=== PATIENT | female | born 1980 | race Caucasian/White ===

== ENCOUNTER 2018-10-06 05:41 | Emergency (ER) | payer OTHER ==
[2018-10-06 05:57] VITALS: O2SAT 100
[2018-10-06] MEDS ORDERED: Sodium Chloride 0.9% 1000 ML 1,000 ML IV STA (05:59)
[2018-10-06] MEDS ORDERED: TORAdol 30 mg Injection IV ONE (05:59)
[2018-10-06] MEDS ORDERED: Pepcid 20 MG VIAL IV ONE ×2 (05:59→06:03)
[2018-10-06] MEDS ORDERED: Zofran 4 MG/2 ML VIAL IV ONE (05:59)
[2018-10-06] MEDS ORDERED: TORAdol 30 mg Injection ONE (06:03)
[2018-10-06] MEDS ORDERED: Zofran 4 MG/2 ML VIAL ONE (06:03)
[2018-10-06] MEDS ORDERED: Sodium Chloride 0.9% 1000 ML 1,000 ML ONE (06:04)
--- NOTE | 2018-10-06 06:04 | ERPHSYRPT ---
- History of Present Illness Historian: patient Exam Limitations: no limitations Patient Subjective Stated Complaint: Abdominal pain Triage Nursing Assessment: Patient ambulated back to ED and transferred self to bed. Patient A+ O X 3. Patient's skin pink, warm and dry. Patient complains of lower right sided abdominal constant sharp pain 8/10 that started Babak. Patient states the pain is unbearable now. Patient's abdomen round and soft with bowel sounds X 4. Patient states she has also been vomiting, nauseous and diarrhea since Friday. Timing/Duration: day(s) (4) Activities at Onset: none Quality: cramping, sharpness Abdominal Pain Onset Location: RLQ Pain Radiation: no radiation Severity of Pain-Max: severe Severity of Pain-Current: moderate Modifying Factors: Improves With: nothing Associated Symptoms: diarrhea, loss of appetite, nausea, vomiting Previous symptoms: no prior history Hx Tetanus, Diphtheria Vaccination/Date Given: Yes Hx Influenza Vaccination/Date Given: No Hx Pneumococcal Vaccination/Date Given: No Immunizations Up to Date: Yes <RAMSEY OLIVO - Last Filed: 10/06/18 06:59> <MONET WILKINS - Last Filed: 10/06/18 09:24> - History of Present Illness Time Seen by Provider: 10/06/18 05:52 Physician History: C/o RLQ abdominal pain, nausea, vomiting, dry heaving, diarrhea x 4 days. She denies vomiting blood or coffee ground material, no black or bloody diarrhea, no fever, chills, or urinary complaints. (RAMSEY OLIVO) Allergies/Adverse Reactions: penicillin G Allergy (Mild, Verified 10/06/18 05:47) Hives prednisone Allergy (Mild, Verified 10/06/18 05:47) Rash Sulfa (Sulfonamide Antibiotics) [Sulfa(Sulfonamide Antibiotics)] Allergy (Mild, Verified 10/06/18 05:47) Hives rash latex Adverse Reaction (Intermediate, Verified 10/06/18 05:47) Rash - Review of Systems Constitutional: No Symptoms Ears, Nose, & Throat: No Symptoms Respiratory: No Symptoms Cardiac: No Symptoms Abdominal/Gastrointestinal: Abdominal Pain, Nausea, Vomiting, Diarrhea, No Hematemesis, No Hematochezia, No Melena Genitourinary Symptoms: No Symptoms Musculoskeletal: No Symptoms Skin: No Symptoms Neurological: No Symptoms All Other Systems: Reviewed and Negative <RAMSEY OLIVO Filed: 10/06/18 06:59> - Past Medical History Pertinent Past Medical History: Yes Neurological History: Migraines ENT History: No Pertinent History Cardiac History: Other Respiratory History: COPD Endocrine Medical History: No Pertinent History Musculoskeletal History: No Pertinent History GI Medical History: No Pertinent History History: Other Psycho-Social History: Depression Female Reproductive Disorders: No Pertinent History Other Medical History: bronchiole MRSA 2005 - Past Surgical History Past Surgical History: Yes Neuro Surgical History: No Pertinent History Cardiac: No Pertinent History Respiratory: No Pertinent History Gastrointestinal: Cholecystectomy Genitourinary: No Pertinent History Musculoskeletal: Orthopedic Surgery Female Surgical History: Section, Tubal Ligation, Other Other Surgical History: hemorrhoidectomy, uterine ablation - Social History Smoking Status: Current every day smoker How long have you smoked: years Exposure to second hand smoke: Yes Drug Use: none Patient Lives Alone: No - Female History Hx Last Menstrual Period: 2013/ablation Hx Now: No <RAMSEY OLIVO Filed: 10/06/18 06:59> - Physical Exam General Appearance: no apparent distress Eye Exam: eyes nml inspection Ears, Nose, Throat Exam: normal ENT inspection, moist mucous membranes Neck Exam: normal inspection, non-tender Respiratory Exam: normal breath sounds, lungs clear, airway intact, No chest tenderness Cardiovascular Exam: regular rate/rhythm, normal heart sounds, normal peripheral pulses, No murmur Gastrointestinal/Abdomen Exam: soft, normal bowel sounds, tenderness (mod. severe RLQ.), No distention, No mass, No guarding, No rebound, No hernia, No organomegaly Back Exam: normal inspection, No CVA tenderness Extremity Exam: normal inspection, No calf tenderness Neurologic Exam: alert, oriented x 3, normal mood/affect Skin Exam: normal color, warm, dry, No rash, No petechiae Lymphatic Exam: No adenopathy SpO2 Interpretation: normal SpO2: 100 O2 Delivery: Room Air <RAMSEY OLIVO Filed: 10/06/18 06:59> - Nursing Vital Signs Nursing Vital Signs: Initial Vital Signs Temperature 97.9 F 10/06/18 05:48 Pulse Rate 76 10/06/18 05:48 Respiratory Rate 18 10/06/18 05:48 Blood Pressure 116/72 10/06/18 05:48 O2 Sat by Pulse Oximetry 100 10/06/18 05:48 Pain Scale Pain Intensity 0 Ordered Tests: Active Orders 24 hr Category Date Time Status IV Insertion STAT Care 10/06/18 05:59 Active Order K Level 2 hours post-inf 2 HRS POST K-INFUSED Care 10/06/18 06:46 Active Telemetry q4h Care 10/06/18 06:46 Active ABDOMEN AND PELVIS W CONTRAST [CT] Stat Exams 10/06/18 05:59 Completed CBC W DIFF Stat Lab 10/06/18 06:00 Completed CMP Stat Lab 10/06/18 06:00 Completed LIPASE Stat Lab 10/06/18 06:00 Completed Lactic Acid Stat Lab 10/06/18 05:59 Completed UA W/RFX UR CULTURE Stat Lab 10/06/18 06:00 Completed Urine Triage Profile Stat Lab 10/06/18 06:00 Completed Medication Summary Generic Name Dose Route Start Last Admin Trade Name Freq PRN Reason Stop Dose Admin Lactated Ringer's 500 mls @ 500 mls/hr 10/06/18 08:41 10/06/18 09:19 Lactated Ringers IV 10/06/18 09:40 Infused .Q1H ONE Infusion Discontinued Medications Generic Name Dose Route Start Last Admin Trade Name Freq PRN Reason Stop Dose Admin Famotidine 20 mg 10/06/18 05:59 10/06/18 06:08 Pepcid 20 Mg Vial IV 10/06/18 06:00 20 mg STAT ONE Administration Famotidine Confirm 10/06/18 06:03 Pepcid 20 Mg Vial Administered 10/06/18 06:04 Dose 20 mg IV .STK-MED ONE Sodium Chloride 1,000 mls @ 999 mls/hr 10/06/18 05:59 10/06/18 08:42 Sodium Chloride 0.9% 1000 Ml IV 10/06/18 06:59 Infused .Q1H1M STA Infusion Sodium Chloride Confirm 10/06/18 06:04 Sodium Chloride 0.9% 1000 Ml Administered 10/06/18 06:05 Dose 1,000 mls @ ud .ROUTE .STK-MED ONE Potassium Chloride 20 meq in 100 mls @ 50 mls/hr 10/06/18 06:45 10/06/18 06: 48 Potassium Chloride 20 Meq In Water 100ml IV 10/06/18 08:44 50 mls/hr STAT ONE Administration Potassium Chloride Confirm 10/06/18 06:48 Potassium Chloride 20 Meq In Water 100ml Administered 10/06/18 06:49 Dose 100 mls @ ud IV .STK-MED ONE Lactated Ringer's Confirm 10/06/18 08:43 Lactated Ringers Administered 10/06/18 08:44 Dose 1,000 mls @ ud IV .STK-MED ONE Ketorolac Tromethamine 30 mg 10/06/18 05:59 10/06/18 06:08 Toradol 30 Mg Injection IV 10/06/18 06:00 30 mg STAT ONE Administration Ketorolac Tromethamine Confirm 10/06/18 06:03 Toradol 30 Mg Injection Administered 10/06/18 06:04 Dose 30 mg .ROUTE .STK-MED ONE Metronidazole 500 mg 10/06/18 09:03 10/06/18 09:12 Flagyl 500 Mg PO 10/06/18 09:04 500 mg STAT ONE Administration Metronidazole Confirm 10/06/18 09:11 Flagyl 500 Mg Administered 10/06/18 09:12 Dose 500 mg .ROUTE .STK-MED ONE Ondansetron HCl 4 mg 10/06/18 05:59 10/06/18 06:09 Zofran 4 Mg/2 Ml Vial IV 10/06/18 06:00 4 mg STAT ONE Administration Ondansetron HCl Confirm 10/06/18 06:03 Zofran 4 Mg/2 Ml Vial Administered 10/06/18 06:04 Dose 4 mg .ROUTE .STK-MED ONE Lab/Rad Data: Laboratory Result Diagrams 10/06/18 06:00 10/06/18 06:00 Laboratory Results 10/06/18 10/06/18 10/06/18 Range/Units 06:00 06:00 06:00 WBC (4.0-10.5) K/mm3 RBC (4.1-5.4) M/mm3 Hgb (12.0-16.0) gm/dl Hct (35-47) % MCV (78-100) fl MCH (26-32) pg MCHC (32-36) g/dl RDW (11.5-14.0) % Plt Count (150-450) K/mm3 MPV (6-9.5) fl Gran % (36.0-66.0) % Eos # (Auto) (0-0.5) Absolute Lymphs (auto) (1.0-4.6) Absolute Monos (auto) (0.0-1.3) Lymphocytes % (24.0-44.0) % Monocytes % (0.0-12.0) % Eosinophils % (0.00-5.0) % Basophils % (0.0-0.4) % Absolute Granulocytes (1.4-6.9) Basophils # (0-0.4) Sodium 139 (137-145) mmol/L Potassium 2.9 L* (3.5-5.1) mmol/L Chloride 103 (98-107) mmol/L Carbon Dioxide 27 (22-30) mmol/L Anion Gap 11.5 (5-15) MEQ/L BUN 9 (7-17) mg/dL Creatinine 0.81 (0.52-1.04) mg/dL Estimated GFR > 60.0 ML/MIN Glucose 116 H (74-106) mg/dL Lactic Acid (0.4-2.0) Calcium 9.0 (8.4-10.2) mg/dL Total Bilirubin 0.30 (0.2-1.3) mg/dL AST 16 (14-36) U/L ALT 11 (0-35) U/L Alkaline Phosphatase 79 (38-126) U/L Serum Total Protein 6.5 (6.3-8.2) g/dL Albumin 3.5 (3.5-5.0) g/dL Lipase 199 (23-300) U/L Urine Color YELLOW (YELLOW) Urine Appearance CLEAR (CLEAR) Urine pH 5.0 (5-6) Ur Specific [place] 1.015 (1.005-1.025) Urine Protein NEGATIVE (Negative) Urine Ketones NEGATIVE (NEGATIVE) Urine Blood NEGATIVE (0-5) Ryan/ul Urine Nitrite NEGATIVE (NEGATIVE) Urine Bilirubin NEGATIVE (NEGATIVE) Urine Urobilinogen NEGATIVE (0-1) mg/dL Ur Leukocyte Esterase NEGATIVE (NEGATIVE) Urine WBC (Auto) NONE (0-5) /HPF Urine RBC (Auto) NONE (0-2) /HPF U Epithel Cells (Auto) RARE (FEW) /HPF Urine Bacteria (Auto) NONE SEEN (NEGATIVE) /HPF Urine Culture Reflexed NO (NO) Urine Glucose NEGATIVE (NEGATIVE) mg/dL Urine Opiates Level NEGATIVE (NEGATIVE) Ur Methadone NEGATIVE (NEGATIVE) Urine Barbiturates NEGATIVE (NEGATIVE) Ur Phencyclidine (PCP) NEGATIVE (NEGATIVE) Urine Amphetamine NEGATIVE (NEGATIVE) U Benzodiazepine Level NEGATIVE (NEGATIVE) Urine Cocaine NEGATIVE (NEGATIVE) Urine Marijuana (THC) NEGATIVE (NEGATIVE) 10/06/18 10/06/18 Range/Units 06:00 05:59 WBC 8.1 (4.0-10.5) K/mm3 RBC 4.37 (4.1-5.4) M/mm3 Hgb 14.3 (12.0-16.0) gm/dl Hct 42.5 (35-47) % MCV 97.3 (78-100) fl MCH 32.7 H (26-32) pg MCHC 33.6 (32-36) g/dl RDW 12.4 (11.5-14.0) % Plt Count 229 (150-450) K/mm3 MPV 10.1 H (6-9.5) fl Gran % 68.2 H (36.0-66.0) % Eos # (Auto) 0.22 (0-0.5) Absolute Lymphs (auto) 1.74 (1.0-4.6) Absolute Monos (auto) 0.57 (0.0-1.3) Lymphocytes % 21.6 L (24.0-44.0) % Monocytes % 7.1 (0.0-12.0) % Eosinophils % 2.7 (0.00-5.0) % Basophils % 0.4 (0.0-0.4) % Absolute Granulocytes 5.50 (1.4-6.9) Basophils # 0.03 (0-0.4) Sodium (137-145) mmol/L Potassium (3.5-5.1) mmol/L Chloride (98-107) mmol/L Carbon Dioxide (22-30) mmol/L Anion Gap (5-15) MEQ/L BUN (7-17) mg/dL Creatinine (0.52-1.04) mg/dL Estimated GFR ML/MIN Glucose (74-106) mg/dL Lactic Acid 1.6 (0.4-2.0) Calcium (8.4-10.2) mg/dL Total Bilirubin (0.2-1.3) mg/dL AST (14-36) U/L ALT (0-35) U/L Alkaline Phosphatase (38-126) U/L Serum Total Protein (6.3-8.2) g/dL Albumin (3.5-5.0) g/dL Lipase (23-300) U/L Urine Color (YELLOW) Urine Appearance (CLEAR) Urine pH (5-6) Ur Specific [place] (1.005-1.025) Urine Protein (Negative) Urine Ketones (NEGATIVE) Urine Blood (0-5) Ryan/ul Urine Nitrite (NEGATIVE) Urine Bilirubin (NEGATIVE) Urine Urobilinogen (0-1) mg/dL Ur Leukocyte Esterase (NEGATIVE) Urine WBC (Auto) (0-5) /HPF Urine RBC (Auto) (0-2) /HPF U Epithel Cells (Auto) (FEW) /HPF Urine Bacteria (Auto) (NEGATIVE) /HPF Urine Culture Reflexed (NO) Urine Glucose (NEGATIVE) mg/dL Urine Opiates Level (NEGATIVE) Ur Methadone (NEGATIVE) Urine Barbiturates (NEGATIVE) Ur Phencyclidine (PCP) (NEGATIVE) Urine Amphetamine (NEGATIVE) U Benzodiazepine Level (NEGATIVE) Urine Cocaine (NEGATIVE) Urine Marijuana (THC) (NEGATIVE) <RAMSEY OLIVO - Last Filed: 10/06/18 06:59> - Progress Progress: improved, re-examined Counseled pt/family regarding: lab results, diagnosis, need for follow-up, rad results <MONET WILKINS - Last Filed: 10/06/18 09:24> - Progress Progress Note: 10/06/18 06:[address] Wilkins, he will follow up on pending results. (RAMSEY OLIVO) 10/06/18 08:[address] reading of ct scan by radiologist stated no acute processes. there was a small right renal cyst and small left ovarian cyst but nl appendix. a later call from radiologist notes a small focus of colitis is ascending colon. these findings were d/w pt. 10/06/18 08:59 (MONET WILKINS) <RAMSEY OLIVO - Last Filed: 10/06/18 06:59> - Departure Departure Disposition: Home Critical Care Time: No <MONET WILKINS - Last Filed: 10/06/18 09:24> - Departure Clinical Impression: Colitis, Hypokalemia Condition: Stable Referrals: MARTÍN GALICIA [Primary Care Provider] - Additional Instructions: drink plenty of clear liquids. follow up with primary doctor for futher management Prescriptions: Ondansetron ODT 4 MG [Zofran Odt 4 mg] 4 mg PO Q6H PRN PRN #10 tab.rapdis PRN Reason: Vomiting Hydrocodone/APAP 5/325 [Stewart 5/325 mg] 1 each PO Q8H PRN PRN #6 tablet MDD 3 PRN Reason: Pain Ciprofloxacin [Cipro 500 MG] 500 mg PO BID #14 tablet Metronidazole 500 mg [Flagyl 500 MG] 500 mg PO TID #21 tablet Potassium Chloride 10 Meq Tab* [Klor Con 10 MEQ] 10 meq PO DAILY #5 tab
[2018-10-06 06:05] LABS: Bacteria NONE SEEN /HPF (NEGATIVE)
[2018-10-06 06:07] LABS: BASOPHIL % 0.4 % (0.0-0.4); Basophil (Absolute #) 0.03 (0-0.4); Eosinophil % 2.7 % (0.00-5.0); Eosinophil (Absolute #) 0.22 (0-0.5); Granulocytes % 68.2 % (36.0-66.0); Hematocrit 42.5 % (35-47); Hemoglobin 14.3 gm/dl (12.0-16.0); Lymphocyte (Absolute #) 1.74 (1.0-4.6); Lymphocytes % 21.6 % (24.0-44.0); Mean Cell Volume 97.3 fl (78-100); Mean Corpuscular Hemoglobin 32.7 pg (26-32); Mean Corpuscular Hgb Concent. 33.6 g/dl (32-36); Mean Platelet Volume 10.1 fl (6-9.5); Monocytes % 7.1 % (0.0-12.0); Platelet Count 229 K/mm3 (150-450); Red Blood Count 4.37 M/mm3 (4.1-5.4); Red Cell Distribution Width 12.4 % (11.5-14.0); White Blood Count 8.1 K/mm3 (4.0-10.5)
[2018-10-06 06:10] LABS: Appearance CLEAR (CLEAR); Bilirubin NEGATIVE (NEGATIVE); Blood NEGATIVE Ery/ul (0-5); Epithelial Cells RARE /HPF (FEW); Glucose NEGATIVE (NEGATIVE); Ketones NEGATIVE (NEGATIVE); Leukocyte Esterase NEGATIVE (NEGATIVE); Nitrite NEGATIVE (NEGATIVE); Protein,Urine Dip NEGATIVE (Negative); Specific Gravity 1.015 (1.005-1.025); Urobilinogen NEGATIVE mg/dL (0-1)
[2018-10-06 06:26] LABS: ALBUMIN 3.5 g/dL (3.5-5.0); ALKALINE PHOSPHATASE 79 U/L (38-126); ANION GAP 11.5 MEQ/L (5-15); BLOOD UREA NITROGEN 9 mg/dL (7-17); CHLORIDE 103 mmol/L (98-107); Carbon Dioxide 27 mmol/L (22-30); Creatinine 1 0.81 mg/dL (0.52-1.04); Glucose 116 mg/dL (74-106); LIPASE 199 U/L (23-300); SGOT/AST 16 U/L (14-36); SGPT/ALT 11 U/L (0-35); SODIUM 139 mmol/L (137-145); Total Protein 6.5 g/dL (6.3-8.2)
[2018-10-06 06:36] LABS: Amphetamine,Urine NEGATIVE (NEGATIVE); Barbiturate,Urine NEGATIVE (NEGATIVE); Benzodiazepine,Urine NEGATIVE (NEGATIVE); Cocaine,Urine NEGATIVE (NEGATIVE); Methadone,Urine NEGATIVE (NEGATIVE); Opiate,Urine NEGATIVE (NEGATIVE); PCP,Urine NEGATIVE (NEGATIVE); THC,Urine NEGATIVE (NEGATIVE)
[2018-10-06 06:40] LABS: Potassium 2.9 mmol/L (3.5-5.1)
[2018-10-06] MEDS ORDERED: POTASSIUM CHLORIDE 20 mEq IN WATER 100ML 20 MEQ/100 ML BAG IV ONE (06:45)
[2018-10-06] MEDS ORDERED: POTASSIUM CHLORIDE 20 mEq IN WATER 100ML 100 ML IV ONE (06:48)
[2018-10-06] MEDS ORDERED: Lactated Ringers 500 ML IV ONE (08:41)
--- NOTE | 2018-10-06 08:42 | XRAY ---
Indication: Right lower quadrant pain 4 days. Nausea, vomiting, and diarrhea. Multiple contiguous axial images obtained through the abdomen and pelvis using 80 cc Isovue 370 contrast only. Comparison: April 30, 2013. Lung bases demonstrate mild bibasilar dependent atelectasis and right lower lobe fibrosis/scarring. Stable right lower lobe calcified granuloma. No infiltrate or effusion. Heart is not enlarged. Noncontrasted stomach and bowel loops appear nonobstructed. Normal appendix. Proximal ascending colon now demonstrates small focus minimal pericolonic stranding possible mild/early colitis. No free fluid/air. Again cholecystectomy. Both kidneys enhance and excrete. New 1 cm right upper pole cortical cyst and 2 cm left ovary cyst. Remaining liver, pancreas, spleen, adrenal glands, kidneys, ureters, bladder, uterus, and aorta appear unremarkable. No pathologic retroperitoneal lymphadenopathy. Osseous structures intact. No ventral or inguinal hernias. Impression: 1. Small focus ascending colon minimal pericolonic stranding possible mild/early colitis. No complications. 2. New right renal and left ovary cysts as detailed. 3. Remaining CT abdomen/pelvis with contrast exam is negative. Comment: Case was discussed with Dr. Miramontes in the ER at 0838 hrs. on May 08, 2018. CT DI 16.20
[2018-10-06] MEDS ORDERED: Lactated Ringers 1,000 ML IV ONE (08:43)
[2018-10-06] MEDS ORDERED: Flagyl 500 MG PO ONE (09:03)
[2018-10-06] MEDS ORDERED: Flagyl 500 MG ONE (09:11)
[2018-10-06 09:24] VITALS: BP 104/71; PULSE 70
== END 2018-10-06 09:31 | disposition home or self-care (01) ==
LOC: ED 05:41
DX: K52.9 Noninfective gastroenteritis and colitis, unspecified (principal); E87.6 Hypokalemia
CPT/HCPCS: 36000; 36415; 74177; 80053; 80307; 81001; 83605; 83690; 85025; 96360; 96361; 96365; 96374; 96375; 99284; J1885; J2405; J3480; A9270-GY

== ENCOUNTER 2020-03-01 20:30 | Emergency (ER) | payer OTHER ==
[2020-03-01] MEDS ORDERED: TORAdol 30 mg Injection IM ONE (21:13)
[2020-03-01] MEDS ORDERED: DECADRON 10MG INJ. IM ONE (21:13)
--- NOTE | 2020-03-01 21:26 | ERPHSYRPT ---
- History of Present Illness Source: patient Exam Limitations: no limitations Patient Subjective Stated Complaint: pt c/o anabaptist pain down to jaw and into the neck. Triage Nursing Assessment: pt c/o anabaptist pain to left side down to jaw and into the neck. Lt side of neck feels swollen. Pt states, "it's starting to give me a headache, it hurts to swallow and turn head to the right side". Physician History: Patient is a 39-year-old female who presents with left-sided headache, jaw pain, neck pain. Occurred today. Denies injury. Her jaw feels swollen and having some difficulty opening her mouth due to the pain. No fever or any upper respiratory symptoms. Patient denies any visual changes. Pain is mainly around the anterior part of her temples, her left jaw, left ear and left side proximal neck. Patient wears dentures full-time. Patient denies any issues with her dentures. Patient feels it might be her sinuses. Timing/Duration: abrupt onset Severity: severe ENT Location: ear (L), facial Prearrival Treatment: no prearrival treatment Modifying Factors: Improves With: nothing Associated Symptoms: ear pain (L), headache, jaw pain, neck pain Allergies/Adverse Reactions: penicillin G Allergy (Mild, Verified 03/01/20 20:48) Hives prednisone Allergy (Mild, Verified 03/01/20 20:48) Rash Sulfa (Sulfonamide Antibiotics) [Sulfa(Sulfonamide Antibiotics)] Allergy (Mild, Verified 03/01/20 20:48) Hives rash latex Adverse Reaction (Intermediate, Verified 03/01/20 20:48) Rash Hx Tetanus, Diphtheria Vaccination/Date Given: Yes Hx Influenza Vaccination/Date Given: No Hx Pneumococcal Vaccination/Date Given: No Immunizations Up to Date: Yes Travel Risk - International Travel Have you traveled outside of the country in past 3 weeks: No - Coronavirus Screening Are you exhibiting any of the following symptoms?: No - Review of Systems Constitutional: No Fever, No Chills Eyes: No Symptoms, No Vision Changes, No Double Vision Ears, Nose, & Throat: No Symptoms, Ear Pain, Mouth Pain Respiratory: No Cough, No Dyspnea Cardiac: No Chest Pain, No Edema, No Syncope Abdominal/Gastrointestinal: No Abdominal Pain, No Nausea, No Vomiting, No Diarrhea Genitourinary Symptoms: No Dysuria Musculoskeletal: No Back Pain, No Neck Pain Skin: No Rash Neurological: No Dizziness, No Focal Weakness, No Sensory Changes Psychological: No Symptoms Endocrine: No Symptoms All Other Systems: Reviewed and Negative - Past Medical History Pertinent Past Medical History: Yes Neurological History: Migraines ENT History: No Pertinent History Cardiac History: Other Respiratory History: COPD Endocrine Medical History: No Pertinent History Musculoskeletal History: No Pertinent History GI Medical History: Gallbladder Disease History: Other Psycho-Social History: Depression Female Reproductive Disorders: No Pertinent History Other Medical History: bronchiole MRSA 2005 - Past Surgical History Past Surgical History: Yes Neuro Surgical History: No Pertinent History Cardiac: No Pertinent History Respiratory: No Pertinent History Gastrointestinal: Cholecystectomy Genitourinary: No Pertinent History Musculoskeletal: Orthopedic Surgery Female Surgical History: Section, Tubal Ligation, Other Other Surgical History: hemorrhoidectomy, uterine ablation - Social History Smoking Status: Current every day smoker How long have you smoked: 28 yrs Exposure to second hand smoke: Yes Drug Use: none Patient Lives Alone: No - Female History Hx Now: No - Nursing Vital Signs Nursing Vital Signs: Initial Vital Signs Temperature 98.9 F 03/01/20 20:40 Pulse Rate 86 03/01/20 20:40 Respiratory Rate 18 03/01/20 20:40 Blood Pressure 122/79 03/01/20 20:40 O2 Sat by Pulse Oximetry 97 03/01/20 20:40 Pain Scale Pain Intensity [Left Face] 8 Pain Intensity 8 - Physical Exam General Appearance: no apparent distress, alert Eye Exam: bilateral eye: PERRL, EOMI Ear Exam: bilateral ear: auricle normal, canal normal, TM bulging (NO erythema) Nasal Exam: normal inspection Throat Exam: pharynx normal, moist mucus membranes, No dental tenderness, No tonsillar exudate Neck Exam: supple, tender lateral Cardiovascular/Respiratory Exam: normal breath sounds, regular rate/rhythm Abdominal Exam: non-tender, soft Neurologic Exam: alert, oriented x 3, sensation nml, No motor deficits Skin Exam: normal color, warm, dry SpO2 Interpretation: normal SpO2: 97 - Course Nursing assessment & vital signs reviewed: Yes Ordered Tests: Medication Summary Discontinued Medications Generic Name Dose Route Start Last Admin Trade Name Freq PRN Reason Stop Dose Admin Dexamethasone Sodium Phosphate 10 mg 03/01/20 21:13 03/01/20 21:52 Decadron 10mg Inj. IM 03/01/20 21:14 10 mg STAT ONE Administration Dexamethasone Sodium Phosphate Confirm 03/01/20 21:45 Decadron 10mg Inj. Administered 03/01/20 21:46 Dose 10 mg .ROUTE .STK-MED ONE Ketorolac Tromethamine 60 mg 03/01/20 21:13 03/01/20 21:50 Toradol 30 Mg Injection IM 03/01/20 21:14 60 mg STAT ONE Administration Ketorolac Tromethamine Confirm 03/01/20 21:45 Toradol 30 Mg Injection Administered 03/01/20 21:46 Dose 60 mg .ROUTE .STK-MED ONE - Progress Progress: improved Progress Note: 03/01/20 22:22 Full examination reveals tenderness around the left TMJ area does radiate into upper portion of her anterior temporal region and also radiates down her neck. Little bit of fluid behind her left TM but otherwise no hyperemia. This does not feel like temporal arteritis to me. There is no tenderness along an artery in that area. Possibly TMJ. Patient declines fever or any other issues and definitely has no visual changes. We will get patient on a Medrol dose pack which is the only she can take. Differentials were discussed with her and I advise close outpatient follow-up with Dr. Ruelas. Counseled pt/family regarding: need for follow-up - Departure Departure Disposition: Home Clinical Impression: Jaw pain, non-TMJ Condition: Stable Critical Care Time: No Referrals: MARTÍN RUELAS [Primary Care Provider] - Instructions: Bruxism (DC) Additional Instructions: Monitor symptoms closely. Take medication as prescribed. You may also take some Tylenol for pain. If you do have symptoms of worsening headache, visual changes or fever please return to the ER immediately. Follow-up with Dr. Ruelas for recheck as soon as possible. Return to ER if worse. Prescriptions: Methylprednisolone Packet [Medrol Dosepack] 4 mg PO UD #1 packet
[2020-03-01] MEDS ORDERED: TORAdol 30 mg Injection ONE (21:45)
[2020-03-01] MEDS ORDERED: DECADRON 10MG INJ. ONE (21:45)
[2020-03-01 22:32] VITALS: BP 117/83; PULSE 69; O2SAT 96
== END 2020-03-01 22:32 | disposition home or self-care (01) ==
LOC: ED 20:30
DX: R68.84 Jaw pain (principal); H92.02 Otalgia, left ear; R51.9 Headache, unspecified; M54.2 Cervicalgia; F17.200 Nicotine dependence, unspecified, uncomplicated
CPT/HCPCS: 96372; 99284; J1100; J1885

== ENCOUNTER 2021-08-21 19:09 | Emergency (ER) | payer OTHER ==
[2021-08-21 20:14] LABS: Absolute Neutrophil Ct (ANC) 10.89 (1.4-6.9); Basophil (Absolute #) 0.02 (0-0.4); Eosinophil % 0.1 % (0.00-5.0); Eosinophil (Absolute #) 0.01 (0-0.5); Hematocrit 46.2 % (35-47); Hemoglobin 15.3 gm/dl (12.0-16.0); Lymphocyte (Absolute #) 0.48 (1.0-4.6); Lymphocytes % 4.2 % (24.0-44.0); Mean Cell Volume 96.3 fl (78-100); Mean Corpuscular Hemoglobin 31.9 pg (26-32); Mean Corpuscular Hgb Concent. 33.1 g/dl (32-36); Mean Platelet Volume 10.6 fl (7.5-11.0); Monocyte (Absolute #) 0.08 (0.0-1.3); Monocytes % 0.7 % (0.0-12.0); Neutrophil % 94.8 % (36.0-66.0); Platelet Count 254 K/mm3 (150-450); Red Cell Distribution Width 13.1 % (11.5-14.0); White Blood Count 11.5 K/mm3 (4.0-10.5)
[2021-08-21 20:20] LABS: ALBUMIN 4.3 g/dL (3.5-5.0); ALKALINE PHOSPHATASE 84 U/L (38-126); ANION GAP 15.5 MEQ/L (5-15); BLOOD UREA NITROGEN 9 mg/dL (7-17); CHLORIDE 106 mmol/L (98-107); Calcium 9.4 mg/dL (8.4-10.2); Carbon Dioxide 19 mmol/L (22-30); Creatinine 1 0.77 mg/dL (0.52-1.04); EST GLOMERULAR FILTRATION RATE > 60.0 ML/MIN; Glucose 184 mg/dL (74-106); Potassium 3.5 mmol/L (3.5-5.1); SGOT/AST 29 U/L (14-36); SODIUM 137 mmol/L (137-145); Total Protein 7.4 g/dL (6.3-8.2)
[2021-08-21 20:26] LABS: SGPT/ALT 18 U/L (0-35)
[2021-08-21 22:18] VITALS: BP 92/63; PULSE 67; O2SAT 94
--- NOTE | 2021-08-21 22:44 | ERPHSYRPT ---
- History of Present Illness Time Seen by Provider: 08/21/21 19:20 Source: patient Exam Limitations: no limitations Patient Subjective Stated Complaint: patient states she has had a cough for 2 days, cough producing thick geen sputum. she states no fever. Triage Nursing Assessment: patient has non productive cough at this time. states she has not had a fever. appears flushed, lung sounds clear. Physician History: Patient is a 41-year-old female with a history of COPD presents to our ED for evaluation of a cough that has been ongoing for 2 days. Patient describes the cough as productive of green sputum. Patient's cough today is dry. No fever. No chest pain. No shortness of breath. No nausea vomiting or diaphoresis. Patient did follow-up with her surgical elastic knitter prior to arrival. Patient was given a shot. Patient does not know what was injected into her. However patient states that did not help her symptoms. Patient is here for an ongoing cough. Patient actively smokes.She voices no other complaints or concerns at this time Timing/Duration: today Severity: moderate Modifying Factors: Improves With: nothing Associated Symptoms: denies symptoms Allergies/Adverse Reactions: penicillin G Allergy (Mild, Verified 03/01/20 20:48) Hives prednisone Allergy (Mild, Verified 03/01/20 20:48) Rash Sulfa (Sulfonamide Antibiotics) [Sulfa(Sulfonamide Antibiotics)] Allergy (Mild, Verified 08/21/21 19:26) Hives rash latex Adverse Reaction (Intermediate, Verified 03/01/20 20:48) Rash Hx Tetanus, Diphtheria Vaccination/Date Given: (unknown) Hx Influenza Vaccination/Date Given: No Hx Pneumococcal Vaccination/Date Given: Yes Immunizations Up to Date: No Travel Risk - International Travel Have you traveled outside of the country in past 3 weeks: No - Coronavirus Screening Are you exhibiting any of the following symptoms?: Yes Symptoms: Cough: New Onset, Vomiting/Diarrhea Close contact with a COVID-19 positive Pt in past 14-21 Days: No - Vaccine Status Have you recieved a Covid-19 vaccination: No - Review of Systems Constitutional: No Symptoms, No Fever, No Chills Eyes: No Symptoms Ears, Nose, & Throat: No Symptoms Respiratory: No Symptoms, No Cough, No Dyspnea Cardiac: No Symptoms, No Chest Pain, No Edema, No Syncope Abdominal/Gastrointestinal: No Symptoms, No Abdominal Pain, No Nausea, No Vomiting, No Diarrhea Genitourinary Symptoms: No Symptoms, No Dysuria Musculoskeletal: No Symptoms, No Back Pain, No Neck Pain Skin: No Symptoms, No Rash Neurological: No Symptoms, No Dizziness, No Focal Weakness, No Sensory Changes Psychological: No Symptoms Endocrine: No Symptoms Hematologic/Lymphatic: No Symptoms Immunological/Allergic: No Symptoms All Other Systems: Reviewed and Negative - Past Medical History Pertinent Past Medical History: Yes Neurological History: Migraines ENT History: No Pertinent History Cardiac History: Other Respiratory History: COPD Endocrine Medical History: No Pertinent History Musculoskeletal History: No Pertinent History GI Medical History: Gallbladder Disease History: Other Psycho-Social History: Depression Female Reproductive Disorders: No Pertinent History Other Medical History: bronchiole MRSA 2006 - Past Surgical History Past Surgical History: Yes Neuro Surgical History: No Pertinent History Cardiac: No Pertinent History Respiratory: No Pertinent History Gastrointestinal: Cholecystectomy Genitourinary: No Pertinent History Musculoskeletal: Orthopedic Surgery Female Surgical History: Section, Tubal Ligation, Other Other Surgical History: hemorrhoidectomy, uterine ablation - Social History Smoking Status: Current every day smoker How long have you smoked: 28 yrs Exposure to second hand smoke: Yes Drug Use: none Patient Lives Alone: No - Female History Hx Last Menstrual Period: ablasion Hx Now: No - Nursing Vital Signs Nursing Vital Signs: Initial Vital Signs Temperature 98.1 F 08/21/21 19:13 Pulse Rate 81 08/21/21 19:13 Respiratory Rate 18 08/21/21 19:13 Blood Pressure 124/87 08/21/21 19:13 O2 Sat by Pulse Oximetry 98 08/21/21 19:13 Pain Scale Pain Intensity 0 - Physical Exam General Appearance: no apparent distress, alert Eye Exam: PERRL/EOMI, eyes nml inspection Ears, Nose, Throat Exam: normal ENT inspection, TMs normal, pharynx normal, moist mucous membranes Neck Exam: normal inspection, non-tender, supple, full range of motion Respiratory Exam: normal breath sounds, lungs clear, airway intact, No respiratory distress Cardiovascular Exam: regular rate/rhythm, normal heart sounds, normal peripheral pulses Gastrointestinal/Abdomen Exam: soft, normal bowel sounds, No tenderness, No mass Back Exam: normal inspection, normal range of motion, No CVA tenderness, No vertebral tenderness Extremity Exam: normal inspection, normal range of motion, pelvis stable Neurologic Exam: alert, oriented x 3, cooperative, normal mood/affect, nml cerebellar function, nml station & gait, sensation nml, No motor deficits Skin Exam: normal color, warm, dry, No rash Lymphatic Exam: No adenopathy SpO2 Interpretation: normal SpO2: 94 O2 Delivery: Room Air - Course Nursing assessment & vital signs reviewed: Yes - CT Exams Chest CT Interpretation: Tele-radiologist Report (No comps. Negative PE. Emphysema, otherwise negative chest.) Ordered Tests: Active Orders 24 hr Category Date Time Status Statistics Intern STAT Care 08/21/21 19:59 Active IV Insertion STAT Care 08/21/21 19:58 Active Pulse Oximetry (ED) STAT Care 08/21/21 19:58 Active CHEST WITH CONTRAST [CT] Stat Exams 08/21/21 20:29 Taken CBC W DIFF Stat Lab 08/21/21 20:00 Completed CMP Stat Lab 08/21/21 20:00 Completed D-DIMER QUANTITATIVE Stat Lab 08/21/21 20:00 Completed TROPONIN Q3H Lab 08/21/21 20:00 Completed TROPONIN Q3H Lab 08/21/21 23:00 Ordered TROPONIN Q3H Lab 08/22/21 02:00 Ordered TROPONIN Q3H Lab 08/22/21 05:00 Ordered TROPONIN Q3H Lab 08/22/21 08:00 Ordered Lab/Rad Data: Laboratory Result Diagrams 08/21/21 20:00 08/21/21 20:00 Laboratory Results 08/21/21 08/21/21 08/21/21 Range/Units 20:00 20:00 20:00 WBC (4.0-10.5) K/mm3 RBC (4.1-5.4) M/mm3 Hgb (12.0-16.0) gm/dl Hct (35-47) % MCV (78-100) fl MCH (26-32) pg MCHC (32-36) g/dl RDW (11.5-14.0) % Plt Count (150-450) K/mm3 MPV (7.5-11.0) fl Gran % (36.0-66.0) % Eos # (Auto) (0-0.5) Absolute Lymphs (auto) (1.0-4.6) Absolute Monos (auto) (0.0-1.3) Lymphocytes % (24.0-44.0) % Monocytes % (0.0-12.0) % Eosinophils % (0.00-5.0) % Basophils % (0.0-0.4) % Absolute Granulocytes (1.4-6.9) Basophils # (0-0.4) D-Dimer 1021 H* (215-500) ng/mL Sodium 137 (137-145) mmol/L Potassium 3.5 (3.5-5.1) mmol/L Chloride 106 (98-107) mmol/L Carbon Dioxide 19 L (22-30) mmol/L Anion Gap 15.5 H (5-15) MEQ/L BUN 9 (7-17) mg/dL Creatinine 0.77 (0.52-1.04) mg/dL Estimated GFR > 60.0 ML/MIN Glucose 184 H (74-106) mg/dL Calcium 9.4 (8.4-10.2) mg/dL Total Bilirubin 0.90 (0.2-1.3) mg/dL AST 29 (14-36) U/L ALT 18 (0-35) U/L Alkaline Phosphatase 84 (38-126) U/L Troponin I < 0.012 (0.000-0.034) ng/mL Serum Total Protein 7.4 (6.3-8.2) g/dL Albumin 4.3 (3.5-5.0) g/dL 08/21/21 Range/Units 20:00 WBC 11.5 H (4.0-10.5) K/mm3 RBC 4.80 (4.1-5.4) M/mm3 Hgb 15.3 (12.0-16.0) gm/dl Hct 46.2 (35-47) % MCV 96.3 (78-100) fl MCH 31.9 (26-32) pg MCHC 33.1 (32-36) g/dl RDW 13.1 (11.5-14.0) % Plt Count 254 (150-450) K/mm3 MPV 10.6 (7.5-11.0) fl Gran % 94.8 H (36.0-66.0) % Eos # (Auto) 0.01 (0-0.5) Absolute Lymphs (auto) 0.48 L (1.0-4.6) Absolute Monos (auto) 0.08 (0.0-1.3) Lymphocytes % 4.2 L (24.0-44.0) % Monocytes % 0.7 (0.0-12.0) % Eosinophils % 0.1 (0.00-5.0) % Basophils % 0.2 (0.0-0.4) % Absolute Granulocytes 10.89 H (1.4-6.9) Basophils # 0.02 (0-0.4) D-Dimer (215-500) ng/mL Sodium (137-145) mmol/L Potassium (3.5-5.1) mmol/L Chloride (98-107) mmol/L Carbon Dioxide (22-30) mmol/L Anion Gap (5-15) MEQ/L BUN (7-17) mg/dL Creatinine (0.52-1.04) mg/dL Estimated GFR ML/MIN Glucose (74-106) mg/dL Calcium (8.4-10.2) mg/dL Total Bilirubin (0.2-1.3) mg/dL AST (14-36) U/L ALT (0-35) U/L Alkaline Phosphatase (38-126) U/L Troponin I (0.000-0.034) ng/mL Serum Total Protein (6.3-8.2) g/dL Albumin (3.5-5.0) g/dL - Progress Progress: improved Progress Note: Patient reassessed. No active coughing at this time. D-dimer positive. CTA chest negative for PE. No indication for further work-up at this time. Tr oponin negative. Will discharge home. Patient agrees to follow-up with primary care doctor within 48 hours for evaluation. Patient declined a prescription for Tessalon Perles that she has Tessalon Perles at home. Patient states that steroids will help her cough. Patient has a prescription for prednisone at home that she will start taking. Patient currently has a follow-up appointment scheduled with her surgical elastic knitter on . Portions of this note were created with voice recognition technology. There may be grammatical, spelling, punctuation or sound alike errors 08/21/21 22:44 Counseled pt/family regarding: diagnosis, need for follow-up, rad results - Departure Departure Disposition: Home Clinical Impression: Cough Condition: Stable Critical Care Time: No Referrals: FRIDA,MARTÍN F [Primary Care Provider] - Follow up/PCP as directed Additional Instructions: Discharge/Care Plan ANDREW EVANS was seen on 08/21/21 in the Emergency Room. The patient was counseled regarding Diagnosis,Lab results, Imaging studies, need for follow up and when to return to the Emergency Room. Prescriptions given: Discharge Note I have spoken with the patient and/or caregivers. I have explained the patient's condition, diagnosis and treatment plan based on the information available to me at this time. I have answered the patient's and/or caregiver's questions and addressed any concerns. The patient and/or caregivers have as good understanding of the patient's diagnosis, condition and treatment plan as can be expected at this point. The vital signs have been stable. The patient's condition is stable and appropriate for discharge from the emergency department. The patient will pursue further outpatient evaluation with the primary care physician or other designated or consulting physician as outlined in the discharge instructions. The patient and/or caregivers are agreeable to this plan of care and follow-up instructions have been explained in detail. The patient and/or caregivers have received these instruction. The patient/and or caregivers are aware that any significant change in condition or worsening of symptoms should prompt an immediate return to this or the closest emergency department or call 911.
[2021-08-22 02:16] LABS: Slide Review 1 YES
--- NOTE | 2021-08-22 08:50 | XRAY ---
Indication: Tachycardia, vomiting, nausea, and elevated d-dimer. COPD. Multiple contiguous axial images obtained through the chest using 80 cc Isovue 370 contrast and PE protocol. Comparison: None There is good opacification of the pulmonary arteries to include the lobar and segmental branches. No pulmonary embolus. Heart not enlarged. Aorta is normal in course and caliber. Small prominent paratracheal and AP window lymph nodes, largest 1.2 x 1.5 cm. Lungs demonstrates mild pulmonary emphysema and tiny posterior right lower lobe calcified granuloma. No suspicious pulmonary mass, infiltrate, consolidation, or effusion. Bony thorax intact. Limited upper abdomen demonstrates cholecystectomy clips. Impression: 1. Negative pulmonary embolus. No acute cardiopulmonary abnormalities. 2. Incidental pulmonary emphysema and old granulomatous disease.
== END 2021-08-21 23:29 | disposition home or self-care (01) ==
LOC: ED 19:09
DX: R05.1 Acute cough (principal); J44.9 Chronic obstructive pulmonary disease, unspecified; Z72.0 Tobacco use
CPT/HCPCS: 36415; 71260; 80053; 84484; 85025; 85379; 93041; 94760; 99284

== ENCOUNTER 2022-04-14 11:22 | Emergency (ER) | payer OTHER ==
[2022-04-14 11:33] VITALS: BP 122/75; O2SAT 95
--- NOTE | 2022-04-14 11:38 | ERPHSYRPT ---
- History of Present Illness Time Seen by Provider: 04/14/22 11:37 Source: patient Exam Limitations: no limitations Patient Subjective Stated Complaint: pt here for cough, pain to left rib area, for 5 days now. is taking predinsone, and tesslon Triage Nursing Assessment: pt alert, face mask in place, has dry cough, skin w/d/p, no edema noted Physician History: pt here for cough, pain to left rib area, for 5 days now. Timing/Duration: day(s) (five days) Cough Quality/Degree: moderate, dry cough Possible Cause: no prior episodes Modifying Factors: Improves With: nothing Associated Symptoms: denies symptoms Allergies/Adverse Reactions: penicillin G Allergy (Mild, Verified 04/14/22 11:34) Hives prednisone Allergy (Mild, Verified 04/14/22 11:34) Rash Sulfa (Sulfonamide Antibiotics) [Sulfa(Sulfonamide Antibiotics)] Allergy (Mild, Verified 04/14/22 11:34) Hives rash latex Adverse Reaction (Intermediate, Verified 04/14/22 11:34) Rash Hx Tetanus, Diphtheria Vaccination/Date Given: (unknown) Hx Influenza Vaccination/Date Given: No Hx Pneumococcal Vaccination/Date Given: Yes Immunizations Up to Date: Yes Travel Risk - International Travel Have you traveled outside of the country in past 3 weeks: No - Coronavirus Screening Are you exhibiting any of the following symptoms?: Yes Symptoms: Cough: New Onset, Headaches/Body Aches/Fatigue - Vaccine Status Have you recieved a Covid-19 vaccination: No - Review of Systems Constitutional: No Fever, No Chills Eyes: No Symptoms Ears, Nose, & Throat: No Symptoms Respiratory: Cough, No Dyspnea, No Wheezing Cardiac: No Chest Pain, No Edema, No Syncope Abdominal/Gastrointestinal: No Abdominal Pain, No Nausea, No Vomiting, No Diarrhea Genitourinary Symptoms: No Dysuria Musculoskeletal: No Back Pain, No Neck Pain Skin: No Rash Neurological: No Dizziness, No Focal Weakness, No Sensory Changes Psychological: No Symptoms Endocrine: No Symptoms All Other Systems: Reviewed and Negative - Past Medical History Pertinent Past Medical History: Yes Neurological History: Migraines ENT History: No Pertinent History Cardiac History: Other Respiratory History: COPD Endocrine Medical History: No Pertinent History Musculoskeletal History: No Pertinent History GI Medical History: Gallbladder Disease History: Other Psycho-Social History: Depression Female Reproductive Disorders: No Pertinent History Other Medical History: bronchiole MRSA 2006 - Past Surgical History Past Surgical History: Yes Neuro Surgical History: No Pertinent History Cardiac: No Pertinent History Respiratory: No Pertinent History Gastrointestinal: Cholecystectomy Genitourinary: No Pertinent History Musculoskeletal: Orthopedic Surgery Female Surgical History: Section, Tubal Ligation, Other Other Surgical History: hemorrhoidectomy, uterine ablation - Social History Smoking Status: Current every day smoker How long have you smoked: 28 yrs Exposure to second hand smoke: Yes Drug Use: none Patient Lives Alone: No - Female History Hx Last Menstrual Period: hyster Hx Now: No - Nursing Vital Signs Nursing Vital Signs: Initial Vital Signs Temperature 97.1 F 04/14/22 11:29 Pulse Rate 80 04/14/22 11:29 Blood Pressure 122/75 04/14/22 11:29 O2 Sat by Pulse Oximetry 95 04/14/22 11:29 Pain Scale Pain Intensity 6 - Physical Exam General Appearance: no apparent distress, alert Eye Exam: PERRL/EOMI, eyes nml inspection Ears, Nose, Throat Exam: normal ENT inspection, TMs normal, pharynx normal, moist mucous membranes Neck Exam: normal inspection, non-tender, supple, full range of motion Respiratory Exam: diminished breath sounds, No respiratory distress Cardiovascular Exam: regular rate/rhythm, normal heart sounds Gastrointestinal/Abdomen Exam: soft, No tenderness Back Exam: normal inspection, No CVA tenderness, No vertebral tenderness Extremity Exam: normal inspection, normal range of motion Neurologic Exam: alert, oriented x 3, cooperative, normal mood/affect, sensation nml, No motor deficits Skin Exam: normal color, warm, dry, No rash Lymphatic Exam: No adenopathy SpO2: 95 - Course Nursing assessment & vital signs reviewed: Yes - Radiology Exams Chest X-ray Interpretation: Reviewed by me, Other (early right lower lobe infiltrate) Ordered Tests: Active Orders 24 hr Category Date Time Status CHEST 2 VIEWS (PA AND LAT) Stat Exams 04/14/22 11:36 Taken Lab/Rad Data: Laboratory Results 04/14/22 Range/Units 11:40 Influenza Type A Ag POSITIVE (NEGATIVE) Influenza Type B Ag NEGATIVE (NEGATIVE) RSV (PCR) NEGATIVE (Negative) SARS-CoV-2 (PCR) NEGATIVE (NEGATIVE) - Progress Progress: improved Air Movement: good Blood Culture(s) Obtained: No Antibiotics given: No Counseled pt/family regarding: lab results, diagnosis, need for follow-up, rad results, smoking cessation - Departure Departure Disposition: Home Clinical Impression: Influenza A Condition: Stable Critical Care Time: No Referrals: MARTÍN GALICIA [Primary Care Provider] - Follow up/PCP as directed Instructions: Flu, Adult (DC) Additional Instructions: Discharge/Care Plan ANDREW EVANS was seen on 04/14/22 in the Emergency Room. The patient was c ounseled regarding Diagnosis,Lab results, Imaging studies, need for follow up and when to return to the Emergency Room. Prescriptions given: Discharge Note I have spoken with the patient and/or caregivers. I have explained the patient's condition, diagnosis and treatment plan based on the information available to me at this time. I have answered the patient's and/or caregiver's questions and addressed any concerns. The patient and/or caregivers have as good understanding of the patient's diagnosis, condition and treatment plan as can be expected at this point. The vital signs have been stable. The patient's condition is stable and appropriate for discharge from the emergency department. The patient will pursue further outpatient evaluation with the primary care physician or other designated or consulting physician as outlined in the discharge instructions. The patient and/or caregivers are agreeable to this plan of care and follow-up instructions have been explained in detail. The patient and/or caregivers have received these instruction. The patient/and or caregivers are aware that any significant change in condition or worsening of symptoms should prompt an immediate return to this or the closest emergency department or call 911. ANDREW EVANS was seen on 04/14/22 n the Emergency Room. At that time you were treated for an emergent condition, during your visit Laboratory, Radiology and/or other procedures may have been ordered. It is very important that you follow-up with your Primary Care Physician MARTÍN GALICIA within the next 24-48 hours to review your Emergency Room visit and the final results of testing that was ordered. Some test results such as Urine Cultures, Blood Cultures, and other cultures if ordered will not be finalized for 24-48 hours. If you do not have a Primary Care Provider please call the medical records department at [phone] ext [phone] to obtain a copy of your results or you may sign into our patient portal to obtain these results by visiting us @ [email or web address] and completing the following steps: 1. Click on the Patient Portal link 2. Click the Patient Self Enrollment Link to complete the enrollment form and entering your 3. Once the enrollment form is completed you will receive an email with a temporary ID and password at the email address you provided. 4. Next choose a user name and password. Your user name must be at least 4 characters long and your password must be at least 4 characters long. 5. Choose a security question from the list and provide your answer to the question. If you already have signed into the Health Portal you may access your Health Care Information 11/11 by the following steps: 1. Login to our website @ [email or web address] 2. Enter your original user name and password. FAQS The [facility] Health Portal is an online tool that contains your Lab Results, Radiology Reports, Visit History, Discharge Instructions and Health Summary Lab and Radiology Results will not be available for 72 hours on the portal. The Portal is a secure site, passwords are encryted and URLs are re-written so they cannot be copied and pasted. You and authorized family members are the only ones who can access your Portal. Also there is a timeout feature that protects your information if you leave the Portal page open. If you have technical difficulty please use the Contact Us link on the page this will allow you to submit any questions you have regarding the Portal or you may contact the Medical Record Department at [phone] ext [phone]. Prescriptions: Oseltamivir 75 mg [Tamiflu 75MG Capsule] 75 mg PO BID #10 cap
[2022-04-14 13:04] LABS: INFLUENZA B NEGATIVE (NEGATIVE); RESPIRATORY SYNCTIAL VIRUS NEGATIVE (Negative); SARS-CoV-2 Xpert Express NEGATIVE (NEGATIVE)
[2022-04-14 13:05] LABS: INFLUENZA A POSITIVE (NEGATIVE)
[2022-04-14] MEDS ORDERED: Tamiflu 75MG Capsule PO ONE ×3 (13:05→13:13)
[2022-04-14 13:17] VITALS: PULSE 72
--- NOTE | 2022-04-14 20:29 | XRAY ---
Indication: Cough. Comparison: April 22, 2020 PA/lateral chest now demonstrates subtle right midlung hazy interstitial alveolar opacity without consolidation/left effusion. Remaining heart, left lung, and bony thorax unremarkable.
== END 2022-04-14 13:21 | disposition home or self-care (01) ==
LOC: ED 11:22
DX: J10.1 Influenza due to other identified influenza virus with other respiratory manifestations (principal); R05.1 Acute cough; R07.81 Pleurodynia; Z28.310 Unvaccinated for COVID-19; Z72.0 Tobacco use
CPT/HCPCS: 0241U; 71046; 99283; A9270-GY

== ENCOUNTER 2022-09-04 17:08 | Emergency (ER) | payer OTHER ==
[2022-09-04 17:16] VITALS: BP 125/97; PULSE 113; O2SAT 96
--- NOTE | 2022-09-04 17:31 | ERPHSYRPT ---
- History of Present Illness Source: patient Exam Limitations: no limitations Patient Subjective Stated Complaint: pt here for foreign body to right ring finger, Triage Nursing Assessment: pt alert, walked in, resp easy, skin w/d/p, has foreign body to ro right index finger no bleeding noted Physician History: 42 yo WF who is R handed presents w a large splinter through her R 4th digit. Pain is minimal, and she is UTD on her tetanus. No other complaints at this time. Occurred: just prior to arrival Method of Injury: other (Large splinter from sign) Quality: constant Severity of Pain-Max: mild Severity of Pain-Current: mild Extremities Pain Location: 4th finger: right Modifying Factors: Improves With: movement Associated Symptoms: none Allergies/Adverse Reactions: penicillin G Allergy (Mild, Verified 09/04/22 17:16) Hives Sulfa (Sulfonamide Antibiotics) [Sulfa(Sulfonamide Antibiotics)] Allergy (Mild, Verified 09/04/22 17:16) Hives rash latex Adverse Reaction (Intermediate, Verified 09/04/22 17:16) Rash Hx Tetanus, Diphtheria Vaccination/Date Given: (unknown) Hx Influenza Vaccination/Date Given: Yes (utd) Hx Pneumococcal Vaccination/Date Given: Yes Immunizations Up to Date: Yes Travel Risk - International Travel Have you traveled outside of the country in past 3 weeks: No - Coronavirus Screening Are you exhibiting any of the following symptoms?: No Close contact with a COVID-19 positive Pt in past 14-21 Days: No - Vaccine Status Have you recieved a Covid-19 vaccination: No - Review of Systems Constitutional: No Symptoms Eyes: No Symptoms Ears, Nose, & Throat: No Symptoms Respiratory: No Symptoms Cardiac: No Symptoms Abdominal/Gastrointestinal: No Symptoms Genitourinary Symptoms: No Symptoms Skin: No Symptoms Neurological: No Symptoms Psychological: No Symptoms Endocrine: No Symptoms Hematologic/Lymphatic: No Symptoms Immunological/Allergic: No Symptoms - Past Medical History Pertinent Past Medical History: Yes Neurological History: Migraines ENT History: No Pertinent History Cardiac History: Other Respiratory History: COPD Endocrine Medical History: No Pertinent History Musculoskeletal History: No Pertinent History GI Medical History: Gallbladder Disease History: Other Psycho-Social History: Depression Female Reproductive Disorders: No Pertinent History Other Medical History: bronchiole MRSA 2005 - Past Surgical History Past Surgical History: Yes Neuro Surgical History: No Pertinent History Cardiac: No Pertinent History Respiratory: No Pertinent History Gastrointestinal: Cholecystectomy Genitourinary: No Pertinent History Musculoskeletal: Orthopedic Surgery Female Surgical History: Section, Tubal Ligation, Other Other Surgical History: hemorrhoidectomy, uterine ablation - Social History Smoking Status: Current every day smoker How long have you smoked: 28 yrs Exposure to second hand smoke: Yes Drug Use: none Patient Lives Alone: No - Female History Hx Last Menstrual Period: post Hx Now: No - Nursing Vital Signs Nursing Vital Signs: Initial Vital Signs Temperature 97 F 09/04/22 17:15 Pulse Rate 113 H 09/04/22 17:15 Respiratory Rate 18 09/04/22 17:15 Blood Pressure 125/97 09/04/22 17:15 O2 Sat by Pulse Oximetry 96 09/04/22 17:15 Pain Scale Pain Intensity 0 Mildly tachy - Physical Exam General Appearance: no apparent distress Eyes, Ears, Nose, Throat Exam: normal ENT inspection Neck Exam: normal inspection, non-tender, supple, full range of motion, No Brudzinski, No Kernig's, No meningismus Cardiovascular/Respiratory Exam: normal breath sounds, heart sounds normal, tachycardia Abdominal Exam: non-tender, soft Back Exam: normal inspection, normal range of motion Shoulder Exam: normal inspection Elbow/Forearm Exam: normal inspection Wrist Exam: normal inspection Hand Exam: soft tissue tenderness (Large splinter through R 4th digit/Superficial/Good distal capillary return and sensation) DTR - Upper Extremity Exam: bicep (R): 2+, bicep (L): 2+ Neuro/Tendon Exam: normal sensation, normal motor functions, normal tendon functions, responds to pain, no evidence tendon injury Mental Status Exam: alert, oriented x 3, cooperative Skin Exam: normal color, warm, dry SpO2 Interpretation: normal SpO2: 96 O2 Delivery: Room Air - Course Nursing assessment & vital signs reviewed: Yes - Radiology Exams Hand X-ray Interpretation: Interpreted by me (No evidence of residual foreign body) Ordered Tests: Active Orders 24 hr Category Date Time Status HAND (MINIMUM 3 VIEWS) Stat Exams 09/04/22 17:25 Taken - Progress Progress Note: 09/04/22 17:30 Nursing note and vital signs reviewed No food or housing insecurities noted Splinter easily removed during physical exam simply w distal traction/No comps 09/04/22 17:58 XR of R hand wo foreign body per ER read Counseled pt/family regarding: diagnosis, need for follow-up, rad results Medical Desision Making - Diagnostic Testing Radiological Interpretation: Interpreted by me - Risk of complications Low Risk: Low risk of morbidity from additional dx testing or treatment - Departure Departure Disposition: Home Clinical Impression: Splinter in skin Condition: Stable Critical Care Time: No Referrals: MARTÍN GALICIA [Primary Care Provider] - Follow up/PCP as directed Instructions: Removal of Foreign Body in Skin Additional Instructions: Wash finger 1-2 times a day with soap/water Watch for signs of infection-increasing redness/increasing pain/temperature greater than 100.5/any pus Start Kefex three times a day for 5 days Motrin/Tylenol for pain Prescriptions: Cephalexin Mh 500 mg [Keflex 500 mg] 500 mg PO TID 5 Days #15 cap
--- NOTE | 2022-09-05 15:07 | XRAY ---
Indication: Fourth finger foreign body. Comparison: March 28, 2010 3 view right hand negative for radiopaque foreign body. No bony, articular, or soft tissue abnormalities.
== END 2022-09-04 18:05 | disposition home or self-care (01) ==
LOC: ED 17:08
DX: S61.244A Puncture wound with foreign body of right ring finger without damage to nail, initial encounter (principal); Z28.310 Unvaccinated for COVID-19; Z72.0 Tobacco use
CPT/HCPCS: 73130; 99282

== ENCOUNTER 2023-10-24 11:22 | Emergency (ER) | payer OTHER ==
--- NOTE | 2023-10-24 11:37 | ERPHSYRPT ---
- History of Present Illness Time Seen by Provider: 10/24/23 11:37 Source: patient Exam Limitations: no limitations Physician History: Patient had a skin lesion removed at [facility] dermatology on Friday. Sutures were placed in a running fashion. She reports some redness and minimal drainage. She has been taking doxycycline but it has been causing GI side effects. She reports that the wound is so tight that she is unable to move her arm and is extremely painful. Allergies/Adverse Reactions: penicillin G Allergy (Mild, Verified 10/24/23 11:31) Hives Sulfa (Sulfonamide Antibiotics) [Sulfa(Sulfonamide Antibiotics)] Allergy (Mild, Verified 10/24/23 11:31) Hives rash latex Adverse Reaction (Intermediate, Verified 10/24/23 11:31) Rash Home Medications: Doxycycline Monohydrate [Mondoxyne Nl] 100 mg PO BID 10/24/23 [History] Hx Tetanus, Diphtheria Vaccination/Date Given: (unknown) Hx Influenza Vaccination/Date Given: Yes (utd) Hx Pneumococcal Vaccination/Date Given: Yes - Review of Systems All Other Systems: Reviewed and Negative - Past Medical History Pertinent Past Medical History: Yes Neurological History: Migraines ENT History: No Pertinent History Cardiac History: No Pertinent History Respiratory History: Bronchitis, COPD, Other Endocrine Medical History: No Pertinent History Musculoskeletal History: No Pertinent History GI Medical History: Gallbladder Disease History: Other Psycho-Social History: Depression Female Reproductive Disorders: No Pertinent History Other Medical History: COVID-19 x4, L arm fracture (childhood), R Carpal Tunnel, R D1 surgery x2, cholecystectomy, ablasion, x3, Bronchoscopy - Past Surgical History Past Surgical History: Yes Neuro Surgical History: No Pertinent History Cardiac: No Pertinent History Respiratory: No Pertinent History Gastrointestinal: Cholecystectomy Genitourinary: No Pertinent History Musculoskeletal: Orthopedic Surgery Female Surgical History: Section, Tubal Ligation, Other Other Surgical History: hemorrhoidectomy, uterine ablation - Female History Hx Last Menstrual Period: 04/22/2013 - Social History Smoking Status: Current every day smoker How long have you smoked: 28 yrs Exposure to second hand smoke: Yes Drug Use: none Patient Lives Alone: No - Nursing Vital Signs Nursing Vital Signs: Initial Vital Signs Temperature 97.9 F 10/24/23 11:23 Pulse Rate 98 H 10/24/23 11:23 Respiratory Rate 16 10/24/23 11:23 Blood Pressure 118/76 10/24/23 11:23 O2 Sat by Pulse Oximetry 98 10/24/23 11:23 Pain Scale Pain Intensity 8 - Physical Exam Skin Exam: other Comments: 10/24/23 12:04 Left forearm Roughly 4 cm surgical incision with a running Vicryl stitch. Both ends of the incision are dogeared. Minimal drainage. There is a small amount of erythema e ncircling the incision. Exquisitely tender to palpation. The entire wound is under significant tension with the suture cutting into the skin every entry point. Procedures - Laceration/Wound Repair Left Lower Dorsal Arm Time of Procedure: 11:50 Wound Location: Left, lower arm Wound Length (cm): 4 Wound's Depth, Shape: superficial Wound Explored: clean Irrigated: No Hibiclens Prep: Yes Wound Debrided: suture removed Wound Repaired With: Dermabond Sterile Dressing Applied?: No - Course Nursing assessment & vital signs reviewed: Yes - Progress Counseled pt/family regarding: diagnosis, need for follow-up Medical Desision Making - Diagnostic Testing Diagnostic test were ordered, analyzed, and reviewed by me: No - Risk of complications Low Risk: Low risk of morbidity from additional dx testing or treatment - Departure Departure Disposition: Home Clinical Impression: Suture material present, Glued skin wound Condition: Good Critical Care Time: No Referrals: MARTÍN GALICIA [Primary Care Provider] - Follow up/PCP as directed Instructions: Wound Care (DC)
[2023-10-24 11:38] VITALS: TEMP 97.9; O2SAT 98
[2023-10-24 12:17] VITALS: BP 124/86; PULSE 91; RESP 17
== END 2023-10-24 12:16 | disposition home or self-care (01) ==
LOC: ED 11:22
DX: Z48.02 Encounter for removal of sutures (principal); Z72.0 Tobacco use
CPT/HCPCS: 12002; 99281